=== PATIENT | male | born 1985 | race Caucasian/White ===

== ENCOUNTER 2023-01-18 12:33 | Inpatient (IN) | payer OTHER ==
[~2023-01-18] VITALS: Ht 175.3 cm; Wt 102.3 kg
[2023-01-18 15:41] LABS: BASOPHILS % (AUTO) 0.5 % (0.0-2.0); EOSINOPHILS % (AUTO) 0.2 % (1.0-6.0); HEMATOCRIT 41.1 % (41-53); HEMOGLOBIN 13.6 g/dL (13.5-17.5); LYMPHOCYTES # (AUTO) 2.7 K/uL (1.0-4.8); LYMPHOCYTES % (AUTO) 23.5 % (22.0-44.0); MEAN CORPUSCULAR HEMOGLOBIN 28.2 pg (26.0-34.0); MEAN CORPUSCULAR HGB CONC 33.1 G/dL (31.0-37.0); MEAN CORPUSCULAR VOLUME 85 fL (80-100); MONOCYTES # (AUTO) 0.6 K/uL (0.1-1.0); MONOCYTES % (AUTO) 5.4 % (2.0-9.0); NEUTROPHILS # (AUTO) 8.1 K/uL (1.8-7.7); NEUTROPHILS % (AUTO) 70.4 % (40.0-70.0); PLATELET COUNT (AUTO) 263 K/uL (150-450); RED BLOOD CELL COUNT(AUTO) 4.81 MIL/uL (4.50-5.90); RED CELL DISTRIBUTION WIDTH 14.5 % (11.5-14.5)
[2023-01-18 15:49] LABS: ANION GAP 6 mmol/L (8-16); CALCIUM, TOTAL 9.8 mg/dL (8.8-10.5); CARBON DIOXIDE 31 mmol/L (22-29); CHLORIDE 98 mmol/L (98-107); CREATININE 1.07 mg/dL (0.60-1.30); GLOMERULAR FILTR. RATE CALC > 60 mL/min (>60); GLUCOSE,RANDOM 104 mg/dL (70-110); POTASSIUM 4.5 mmol/L (3.5-5.1); SODIUM SERUM 135 mmol/L (136-145)
[2023-01-18 15:56] LABS: ALANINE AMINOTRANSFERASE 23 U/L (12-78); ALBUMIN 4.1 g/dL (3.4-5.0); ALKALINE PHOSPHATASE 127 U/L (46-116); ASPARTATE AMINOTRANSFERASE 18 U/L (15-37); BILIRUBIN,TOTAL 0.3 mg/dL (0.1-1.0); TOTAL PROTEIN, SERUM 8.8 g/dL (6.4-8.2)
[2023-01-18] MEDS ORDERED: ONDANSETRON HCL 4 MG TABLET PO ONE (16:15)
[2023-01-18] MEDS ORDERED: IBUPROFEN 600 MG TABLET PO ONE (16:15)
[2023-01-18] MEDS ORDERED: BACLOFEN 10 MG TABLET PO PRN (18:30)
[2023-01-18] MEDS ORDERED: ALBUTEROL SULFATE 2.5 MG/0.5 ML NEB SOLUTION NEB PRN (18:30)
[2023-01-18] MEDS ORDERED: CloNIDine HCL 0.1 MG TABLET PO PRN (18:30)
[2023-01-18] MEDS ORDERED: DICYCLOMINE HCL 10 MG CAPSULE PO PRN (18:30)
[2023-01-18] MEDS ORDERED: HydrOXYzine PAMOATE 50 MG CAPSULE PO PRN (18:30)
[2023-01-18] MEDS ORDERED: BISACODYL 10 MG RECTAL RECTAL SUPPOSITORY PR PRN (18:30)
[2023-01-18] MEDS ORDERED: IPRATROPIUM BROMIDE 0.5 MG/2.5 ML NEB SOLUTION NEB PRN (18:30)
[2023-01-18] MEDS ORDERED: IBUPROFEN 600 MG TABLET PO PRN (18:30)
[2023-01-18] MEDS ORDERED: PROMETHAZINE HCL 25 MG TABLET PO PRN (18:30)
[2023-01-18] MEDS ORDERED: LOPERAMIDE HCL 2 MG/15 ML SUSPENSION UDCUP PO PRN (18:30)
[2023-01-18] MEDS ORDERED: MAG HYDROX/AL HYDROX/SIMETH ES 30 ML SUSPENSION UDCUP PO PRN (18:30)
[2023-01-18] MEDS ORDERED: MAGNESIUM HYDROXIDE SUSPENSION 30 ML UDCUP PO PRN (18:30)
[2023-01-18] MEDS ORDERED: ACETAMINOPHEN 325 MG TABLET PO PRN (18:30)
[2023-01-18] MEDS ORDERED: ZOLPIDEM TARTRATE 5 MG TABLET PO PRN (18:30)
[2023-01-18] MEDS ORDERED: TraZODone HCL 50 MG TABLET PO PRN (18:30)
[2023-01-18] MEDS: SODIUM CHLORIDE 0.45% 1,000 ML IV SCH (20:56)
[2023-01-18] MEDS: DOCUSATE SODIUM 100 MG CAPSULE PO SCH (20:56)
[2023-01-18] MEDS: LORazepam 1 MG TABLET PO PRN (20:58)
[2023-01-18 21:00] VITALS: BP 134/91
[2023-01-18] MEDS: HEPARIN SODIUM,PORCINE 5,000 UNITS/ML VIAL SQ SCH (23:32)
[2023-01-19 08:00] VITALS: BP 100/60
[2023-01-19] MEDS: PANTOPRAZOLE SODIUM 40 MG/VIAL IVP SCH (08:55)
[2023-01-19] MEDS: HEPARIN SODIUM,PORCINE 5,000 UNITS/ML VIAL SQ SCH ×2 (08:55→16:28)
[2023-01-19] MEDS: DOCUSATE SODIUM 100 MG CAPSULE PO SCH ×2 (08:56→20:10)
[2023-01-19] MEDS: LORazepam 1 MG TABLET PO PRN ×2 (08:59→16:27)
[2023-01-19 17:10] VITALS: BP 101/73
[2023-01-19 19:55] VITALS: BP 106/46
[2023-01-19] MEDS: ONDANSETRON HCL 4 MG/2 ML VIAL IVP PRN (20:09)
[2023-01-19 20:21] LABS: AMPHET/METH SCREEN,URINE POSITIVE (NEGATIVE); BARBITURATE SCREEN, URINE NEGATIVE (NEGATIVE); BENZODIAZEPINES SCREEN,URINE NEGATIVE (NEGATIVE); CANNABINOID SCREEN,URINE NEGATIVE (NEGATIVE); COCAINE SCREEN,URINE NEGATIVE (NEGATIVE); METHADONE SCREEN, URINE NEGATIVE (NEGATIVE); OPIATE SCREEN,URINE NEGATIVE (NEGATIVE); PHENCYCLIDINE SCREEN,URINE NEGATIVE (NEGATIVE)
[2023-01-19] MEDS: SODIUM CHLORIDE 0.45% 1,000 ML IV SCH (23:15)
[2023-01-20 04:25] VITALS: BP 108/64
[2023-01-20] MEDS: LORazepam 1 MG TABLET PO PRN ×3 (04:58→20:48)
[2023-01-20 07:54] VITALS: BP 114/54
[2023-01-20] MEDS: DOCUSATE SODIUM 100 MG CAPSULE PO SCH ×2 (08:43→20:48)
[2023-01-20] MEDS: PANTOPRAZOLE SODIUM 40 MG/VIAL IVP SCH (08:43)
[2023-01-20] MEDS: HEPARIN SODIUM,PORCINE 5,000 UNITS/ML VIAL SQ SCH ×4 (08:43→23:38)
[2023-01-20] MEDS: ONDANSETRON HCL 4 MG/2 ML VIAL IVP PRN (08:52)
[2023-01-20 19:57] VITALS: BP 102/58
[2023-01-20] MEDS: ACETAMINOPHEN 325 MG TABLET PO PRN (20:49)
[2023-01-20] MEDS: ZOLPIDEM TARTRATE 10 MG TABLET PO SCH (21:11)
[2023-01-20] MEDS: SODIUM CHLORIDE 0.45% 1,000 ML IV SCH (23:38)
[2023-01-21] MEDS: LORazepam 1 MG TABLET PO PRN (03:55)
[2023-01-21 05:01] VITALS: BP 108/60
[2023-01-21 07:37] VITALS: BP 121/69
[2023-01-21] MEDS: ONDANSETRON HCL 4 MG/2 ML VIAL IVP PRN (08:37)
[2023-01-21] MEDS: PANTOPRAZOLE SODIUM 40 MG/VIAL IVP SCH (08:38)
[2023-01-21] MEDS: HEPARIN SODIUM,PORCINE 5,000 UNITS/ML VIAL SQ SCH ×2 (08:39→16:44)
[2023-01-21] MEDS: DOCUSATE SODIUM 100 MG CAPSULE PO SCH ×2 (08:39→21:08)
[2023-01-21] MEDS: DiphenhydrAMINE HCL 50 MG/ML VIAL IVP PRN ×2 (13:09→19:47)
[2023-01-21] MEDS ORDERED: SODIUM CHLORIDE 0.9% 0 ML ONE (13:14)
[2023-01-21] MEDS: SODIUM CHLORIDE 0.45% 1,000 ML IV SCH (13:16)
[2023-01-21 15:34] VITALS: BP 107/66
[2023-01-21 19:45] VITALS: BP 105/60
[2023-01-21] MEDS: ACETAMINOPHEN 325 MG TABLET PO PRN (19:50)
[2023-01-21] MEDS: ZOLPIDEM TARTRATE 10 MG TABLET PO SCH (21:08)
[2023-01-22] MEDS: SODIUM CHLORIDE 0.45% 1,000 ML IV SCH (02:43)
[2023-01-22 04:20] VITALS: BP 103/55
[2023-01-22 07:29] VITALS: BP 121/81
[2023-01-22] MEDS: DiphenhydrAMINE HCL 50 MG/ML VIAL IVP PRN (07:38)
[2023-01-22] MEDS: DOCUSATE SODIUM 100 MG CAPSULE PO SCH (08:36)
[2023-01-22] MEDS: HEPARIN SODIUM,PORCINE 5,000 UNITS/ML VIAL SQ SCH ×2 (08:39)
[2023-01-22] MEDS: PANTOPRAZOLE SODIUM 40 MG/VIAL IVP SCH (08:39)
== END 2023-01-22 14:00 | DRG 897 ==
LOC: EMS 12:37 → 6S 17:12
PROVIDERS: ADMIT Hospitalist; ATTEND Hospitalist
DX: F11.93 Opioid use, unspecified with withdrawal (principal); F15.10 Other stimulant abuse, uncomplicated
CPT/HCPCS: 80053; 80307; 85025; 99285; C9113; G0480; J1200; J1644; J2405; J7030; Q0162